=== PATIENT | female | born 1940 | race Caucasian/White ===

== ENCOUNTER 2016-10-28 13:09 | Inpatient (IN) | payer MEDICARE, OTHER ==
[2016-10-22 09:27] LABS: BASOPHILS 0.5 %; BASOPHILS ABSOLUTE 0.03 10/3/uL (0.0-0.16); EOSINOPHILS 3.4 %; HEMATOCRIT 41.3 % (36.0-48.0); HEMOGLOBIN 13.9 g/dL (12.0-16.0); IMMATURE GRANULOCYTES 0.2 %; IMMATURE GRANULOCYTES ABSOLUTE 0.01 10/3/uL (0.0-0.11); LYMPHOCYTES 29.3 %; LYMPHOCYTES ABSOLUTE 1.74 10/3/uL (0.67-4.30); MEAN CORPUS HGB CONC 33.7 g/dL (32.0-36.0); MEAN CORPUSCULAR HEMOGLOB 28.8 pg (26.0-34.0); MEAN CORPUSCULAR VOLUME 85.7 fL (80-100); MEAN PLATELET VOLUME 9.7 fL (9.2-13.0); MONOCYTES 9.6 %; MONOCYTES ABSOLUTE 0.57 10/3/uL (0.21-1.20); NEUTROPHILS ABSOLUTE 3.39 10/3/uL (2.02-8.40); PLATELET COUNT 232 10/3/uL (150-400); RBC DISTRIBUTION WIDTH 13.6 % (12.0-16.0); RED CELL COUNT 4.82 10/6/uL (4.0-5.6); WHITE BLOOD CELLS 5.9 10/3/uL (4.5-10.5)
[2016-10-22 09:28] LABS: MANUAL DIFF NO %
[2016-10-22 09:33] LABS: PROTIME (NOT ORD) 12.9 SEC (12.0-14.5)
[2016-10-22 09:42] LABS: BUN (BLOOD UREA NITROGEN) 24 MG/DL (6-23); CALCIUM, SERUM 9.4 MG/DL (8.5-10.4); CHLORIDE, SERUM 105 MMOL/L (96-112); CO2 (CARBON DIOXIDE) 30 MMOL/L (24-34); CREATININE 1.15 MG/DL (0.55-1.02); GFR AFRICAN AMERICAN 54 ML/MIN (>=60); GFR NON AFRICAN AMERICAN 47 ML/MIN (>=60); GLUCOSE, SERUM 99 MG/DL (60-99); POTASSIUM, SERUM 4.4 MMOL/L (3.5-5.3); SODIUM, SERUM 144 MMOL/L (135-148)
--- NOTE | ~2016-10-28 | OP ---
Record Of Operation [facility] [address] [place]. [address] NAME: ROBBY OSULLIVAN : 44 STATUS : ADM IN PAT#: [id number] AGE: 76 ADM/REG DATE : 10/28/16 MR#: [id number] REPORT SERV DATE: 10/28/16 DICTATED BY: EFRAIN JULIAN DATE: 10/28/16 REPORT STATUS : Draft TRANSCRIBED BY: MODL DATE: 10/28/16 DATE OF PROCEDURE: 10/28/2016 PREPROCEDURE DIAGNOSIS: High-grade critical stenosis, left internal carotid artery, asymptomatic. POSTOPERATIVE DIAGNOSIS: 95% obstruction of the proximal left internal carotid artery. PROCEDURE PERFORMED: Left eversion carotid endarterectomy with intraoperative ultrasound guidance and permissive hypertension. ANESTHESIA: Local MAC. COMPLICATIONS: None. INDICATION FOR PROCEDURE: Secondary to this very pleasant 76-year-old female presenting with evidence of critical left internal carotid artery obstruction, recommendations were made for endarterectomy. Risks and benefits discussed. Consent was obtained. DETAILS OF THE PROCEDURE: The patient was brought to the endovascular operating room, placed in supine position, prepped and draped in routine sterile fashion with attention to the left neck. Incision was made after appropriate local MAC anesthesia after noninvasive ultrasound testing confirmed the location of the common carotid artery and its bifurcation. Incision was then made and dissection proceeded down to the common carotid artery which was loop controlled. 5000 units of heparin was given and allowed to circulate at this point. The external carotid artery and internal carotid artery were dissected free. The superior thyroidal artery was ligated and divided, and the distal ICA became soft and supple. Permissive hypertension was instituted driving systolic pressure over 200. The distal IC was then clamped followed by the common and the external loop controlled. Internal carotid arteries amputated from the bulb to create a wide patch. Eversion technique was then utilized to remove the plaque from the internal, external bulb and common to my satisfaction. Flushing maneuvers were performed. The anastomosis was then performed with a 6-0 Prolene on a C1 needle running continuous stitch. This was hemostatic upon completion with 1 additional patch suture. Flushing maneuvers were performed prior to complete closure. The patient maintained normal neurologic integrity throughout the entire procedure. Surgicel and FloSeal were used to promote local hemostasis. The platysma was then closed with Vicryl and Monocryl for the skin. Steri-Strip dressings were applied. The patient tolerated the procedure well and was neurologically intact at the end of the procedure. CL/DAVID Efrain Julian M.D. Record Of [address] [address] NAME: ROBBY OSULLIVAN : 44 STATUS : ADM IN PAT#: [id number] AGE: 76 ADM/REG DATE : 10/28/16 MR#: [id number] REPORT SERV DATE: 10/28/16 DICTATED BY: EFRAIN JULIAN DATE: 10/28/16 REPORT STATUS : Draft TRANSCRIBED BY: DAVID DATE: 10/28/16 / [id number] CC: Efrain Julian M.D.
[~2016-10-28 13:09] MED LIST: ACAI PO; ASA5GR PO; COZAAR100 MG PO; FISH OIL1200 MG PO; GARLIC; MAG OXIDE250 MG PO; MULTIPLE VIT PO; PLAVIX PO; PRILO PO; TRIAMTERENE-HCTZ; VITAMIN D31000 UNIT PO; ZOCOR40 PO
[2016-10-28 17:31] LABS: HEMOGLOBIN 11.6 g/dL (12.0-16.0)
[2016-10-28 17:33] LABS: HEMATOCRIT 34.1 % (36.0-48.0)
[2016-10-29 05:03] LABS: BASOPHILS 0.2 %; BASOPHILS ABSOLUTE 0.01 10/3/uL (0.0-0.16); EOSINOPHILS 1.6 %; HEMATOCRIT 34.3 % (36.0-48.0); HEMOGLOBIN 11.5 g/dL (12.0-16.0); IMMATURE GRANULOCYTES 0.2 %; IMMATURE GRANULOCYTES ABSOLUTE 0.01 10/3/uL (0.0-0.11); LYMPHOCYTES 25.4 %; MEAN CORPUS HGB CONC 33.5 g/dL (32.0-36.0); MEAN CORPUSCULAR HEMOGLOB 28.7 pg (26.0-34.0); MEAN CORPUSCULAR VOLUME 85.5 fL (80-100); MEAN PLATELET VOLUME 9.4 fL (9.2-13.0); MONOCYTES 10.8 %; MONOCYTES ABSOLUTE 0.68 10/3/uL (0.21-1.20); NEUTROPHILS 61.8 %; NEUTROPHILS ABSOLUTE 3.91 10/3/uL (2.02-8.40); PLATELET COUNT 186 10/3/uL (150-400); RBC DISTRIBUTION WIDTH 13.2 % (12.0-16.0); RED CELL COUNT 4.01 10/6/uL (4.0-5.6); WHITE BLOOD CELLS 6.3 10/3/uL (4.5-10.5)
[2016-10-29 05:04] LABS: MANUAL DIFF NO %
[2016-10-29 05:12] LABS: BUN (BLOOD UREA NITROGEN) 24 MG/DL (6-23); CHLORIDE, SERUM 105 MMOL/L (96-112); CO2 (CARBON DIOXIDE) 28 MMOL/L (24-34); CREATININE 0.97 MG/DL (0.55-1.02); GFR AFRICAN AMERICAN 67 ML/MIN (>=60); GFR NON AFRICAN AMERICAN 58 ML/MIN (>=60); GLUCOSE, SERUM 95 MG/DL (60-99); PHOSPHORUS, SERUM 3.1 MG/DL (2.5-4.5); POTASSIUM, SERUM 3.9 MMOL/L (3.5-5.3)
[2016-10-29 05:14] LABS: CALCIUM, SERUM 8.3 MG/DL (8.5-10.4); SODIUM, SERUM 137 MMOL/L (135-148)
== END 2016-10-29 13:06 | disposition home or self-care (01) | DRG 39 ==
LOC: SDC/OF 13:09 → CCU 18:36
PROVIDERS: Specialist
PROC: 03CL0ZZ Extirpation of Matter from Left Internal Carotid Artery, Open Approach (ICD-10-PCS; principal; 2016-10-28 15:15)
DX: I65.22 Occlusion and stenosis of left carotid artery (principal); I10 Essential (primary) hypertension; K21.9 Gastro-esophageal reflux disease without esophagitis; E78.5 Hyperlipidemia, unspecified; E55.9 Vitamin D deficiency, unspecified; I73.9 Peripheral vascular disease, unspecified; Z79.899 Other long term (current) drug therapy; Z12.31 Encounter for screening mammogram for malignant neoplasm of breast; Z87.891 Personal history of nicotine dependence; Z82.49 Family history of ischemic heart disease and other diseases of the circulatory system; Z80.0 Family history of malignant neoplasm of digestive organs; Z88.0 Allergy status to penicillin; Z88.2 Allergy status to sulfonamides; Z88.5 Allergy status to narcotic agent
CPT/HCPCS: 71020; 80048; 82330; 83735; 84100; 85014; 85018; 85025; 85610; 87641; 88304; 88311; 93005; A9270-GY; J2370; J2405; J2550; J3010; J3370